=== PATIENT | male | born 1990 | race Caucasian/White ===

== ENCOUNTER 2021-03-16 11:10 | Emergency (ER) | payer OTHER ==
[~2021-03-16] VITALS: Ht 182.9 cm; Wt 74.8 kg
== END 2021-03-16 14:57 | disposition home or self-care (01) ==
LOC: ER 11:10
DX: R42 Dizziness and giddiness (principal); Z03.818 Encounter for observation for suspected exposure to other biological agents ruled out; F14.988 Cocaine use, unspecified with other cocaine-induced disorder; F12.988 Cannabis use, unspecified with other cannabis-induced disorder